=== PATIENT | male | born 1945 | race Caucasian/White ===

== ENCOUNTER 2017-08-15 09:33 | Day surgery (SDC) | payer MEDICARE, BC ==
[2017-08-14 17:44] VITALS: BMI 28.2
[2017-08-15 10:13] LABS: Hematocrit 50.2 % (42.0-52.0)
[2017-08-15 10:28] LABS: Anion Gap 12 mmol/L (10-20); BUN (Urea Nitrogen) 9 mg/dL (8.4-25.7); Calc. Creatinine Clearance 101 mL/min (70-130); Calcium 9.4 mg/dL (7.8-10.44); Carbon Dioxide 25 mmol/L (23-31); Chloride 106 mmol/L (98-107); Estimated GFR-MDRD 82
[2017-08-15] MEDS ORDERED: Lidocaine 1% w/Epinephrine 1:200K 30 ML VIAL ONE (11:00)
[2017-08-15] MEDS ORDERED: Bacitracin Zinc Ointment 30 gm TUBE ONE (11:01)
[2017-08-15] MEDS ORDERED: Fentanyl 100 MCG/2 ML VIAL ONE (11:04)
[2017-08-15] MEDS ORDERED: Lidocaine 1% PF 5 ML VIAL ONE (11:33)
[2017-08-15] MEDS ORDERED: Ondansetron HCl/PF 4 MG/2 ML Vial ONE (11:33)
[2017-08-15] MEDS ORDERED: Propofol 200 MG/20 ML VIAL ONE (11:33)
--- NOTE | 2017-08-15 13:24 | OP ---
PREOPERATIVE DIAGNOSES: Basal cell carcinoma, right nasolabial flap. POSTOPERATIVE DIAGNOSES: Basal cell carcinoma, right nasolabial region. PROCEDURE PERFORMED: Excision of malignant basal cell carcinoma of the right nasolabial region gustavo uring 3.5 cm with a nasolabial flap complex reconstruction. PROCEDURE IN DETAIL: After consent was obtained, the patient was identified, brought to the operati ng room and placed on the table in supine position. Patient was identified, brought to the operatin g room and placed on the table in supine position. Anesthesia was obtained. The patient was positi oned for surgery. A 1% lidocaine with 1:100,000 epinephrine was infiltrated in the area of intended surgery. An elliptical incision was created around the basal cell carcinoma that was identified on the nasal dorsum above the right nasal ala. This was then excised and sent for histologic margins which were clear. We then extended the incision down lateral to the ala and then we excised the wed ge of skin and then advanced and then undermined the skin inferiorly and laterally and advanced the skin into the defect. We then closed the skin in layers with 5-0 Monocryl for the deep layers and 5 -0 Prolene and mattress sutures for the skin. Vertical mattress sutures for the skin. Sterile dres sing was applied as was a Dermabond. The patient was awakened and taken to recovery where she remai vane in stable condition prior to discharge home.
== END 2017-08-15 14:09 | disposition home or self-care (01) ==
LOC: SDC 09:33
PROVIDERS: ATTEND Specialist
PROC: 0HB1XZZ Excision of Face Skin, External Approach (ICD-10-PCS; principal; 2017-08-15)
DX: L98.9 Disorder of the skin and subcutaneous tissue, unspecified (principal); I20.9 Angina pectoris, unspecified; I10 Essential (primary) hypertension; E11.9 Type 2 diabetes mellitus without complications; H91.90 Unspecified hearing loss, unspecified ear; E78.00 Pure hypercholesterolemia, unspecified; Z79.02 Long term (current) use of antithrombotics/antiplatelets; Z79.82 Long term (current) use of aspirin; Z79.4 Long term (current) use of insulin; Z79.899 Other long term (current) drug therapy; Z96.1 Presence of intraocular lens; Z98.41 Cataract extraction status, right eye; Z95.1 Presence of aortocoronary bypass graft; Z95.818 Presence of other cardiac implants and grafts; Z98.890 Other specified postprocedural states; Z85.828 Personal history of other malignant neoplasm of skin; Z83.3 Family history of diabetes mellitus; Z82.3 Family history of stroke
CPT/HCPCS: 36415; 80048; 85014; 85018; 85049; 88305; 88331; 88332; 93005; 93010; J2001; J2405; J2704; J3010

== ENCOUNTER 2018-08-28 10:42 | Day surgery (SDC) | payer MEDICARE, BC ==
[2018-08-27 08:32] VITALS: BMI 28.5
[2018-08-28] MEDS ORDERED: Lidocaine 1% PF 5 ML VIAL ONE (11:41)
[2018-08-28] MEDS ORDERED: Dexamethasone 20 MG/5 ML VIAL ONE (11:41)
[2018-08-28] MEDS ORDERED: Ondansetron PF 4 MG/2 ML Vial ONE (11:41)
[2018-08-28] MEDS ORDERED: PROPOFOL 200 MG/20 ML VIAL ONE (11:41)
[2018-08-28] MEDS ORDERED: ePHEDrine/0.9% NaCl/PF SYRINGE 50 mg/10 ml ONE (11:41)
[2018-08-28 13:11] LABS: Hemoglobin 13.9 g/dL (14.0-18.0)
[2018-08-28 13:25] LABS: Anion Gap 10 mmol/L (10-20); BUN (Urea Nitrogen) 10 mg/dL (8.4-25.7); Calc. Creatinine Clearance 105 mL/min (70-130); Calcium 9.3 mg/dL (7.8-10.44); Carbon Dioxide 24 mmol/L (23-31); Chloride 107 mmol/L (98-107); Estimated GFR-MDRD 87; Glucose 131 mg/dL (83-110); Potassium 4.2 mmol/L (3.5-5.1); Sodium 137 mmol/L (136-145)
[2018-08-28] MEDS ORDERED: Fentanyl 100 MCG/2 ML VIAL ONE (14:39)
[2018-08-28] MEDS ORDERED: Lidocaine 1% w/Epinephrine 1:100K 30 ML VIAL ONE (14:40)
[2018-08-28] MEDS ORDERED: Ophthalmic Irrigation Solution 15 ML ONE (15:02)
--- NOTE | 2018-08-28 19:11 | OP ---
PREOPERATIVE DIAGNOSIS: Left malignant nasal lesion. POSTOPERATIVE DIAGNOSIS: Left malignant basal cell carcinoma. PROCEDURES PERFORMED: Excision of left malignant basal cell carcinoma measuring 2.5 cm with complex rotational flap closure. PROCEDURE IN DETAIL: After consent was obtained, the patient was identified, brought to the operatin g room and placed on the operating room table in supine position. LMA anesthesia was obtained. The patient was positioned for surgery. The area of intended excision was examined and demarcated under microscopic visualization. We then prepped the area and infiltrated with 1% lidocaine with 1:100,000 epinephrine. An elliptical incision was made and sent for histologic evaluation. Margins were seema r. We then created a rhomboid type flap and rotated the flap into the defect and secured that with t he deep tissues with a 6-0 Monocryl and the skin with 6-0 Prolene. Hemostasis was obtained with bipo lar. Sterile dressing was applied. Steri-Strips were placed after Dermabond. The patient was awake vane and taken to recovery room in stable condition prior to discharge home.
--- NOTE | 2018-09-01 06:47 | PQF ---
[facility] POST DISCHARGE CLINICAL DOCUMENTATION IMPROVEMENT CLARIFICATION FORM l Todays Date: 09/01/18 l Patients Name JOHN OLEA l l Admit Date 08/28/18 l Disch Date 08/28/18 Camp Attendant Name Nicolas Niño Email: [email or web address]: [phone] Present Clinical Indicators - Signs / Symptoms Results and Location in Medical Record [ ] Documentation of: [ ] [ ] Documentation of: [ ] [ ] Documentation of: [ ] [ ] Documentation of: [ ] [ ] Risks [ ] [ ] [ ] Treatment [ ] BASAL CELL CARCINOMA OF NOSE QUERY FOR SIZE IN AREA OF ROTATIONAL FLAP USED FOR WOUND CLOSURE (sq cm) [ ] [ ] To be completed by Physician: GUSTAVO CONWAY The documentation in this patients record requires clarification to ensure coding compliance and accuracy. Check the appropriate box and include in your discharge summary. [ ] [ ] [ ] [ ] Please check this box if this does not apply to this patient [ ] Unable to determine [ ] Other diagnosis: Review the following information and exercise your independent professional judgment in responding to the clarification. Based upon the clinical findings, risk factors, and treatment, please clarify if you are treating one of the above probable or suspected diagnoses. Physician Signature: Date Time MTDD
== END 2018-08-28 17:40 | disposition home or self-care (01) ==
LOC: SDC 10:42
PROVIDERS: ATTEND Specialist
PROC: 0HX1XZZ Transfer Face Skin, External Approach (ICD-10-PCS; principal; 2018-08-28)
PROC: 0HB1XZZ Excision of Face Skin, External Approach (ICD-10-PCS; 2018-08-28)
DX: C44.311 Basal cell carcinoma of skin of nose (principal); D23.39 Other benign neoplasm of skin of other parts of face; E11.9 Type 2 diabetes mellitus without complications; I10 Essential (primary) hypertension; E78.00 Pure hypercholesterolemia, unspecified; Z79.02 Long term (current) use of antithrombotics/antiplatelets; Z79.82 Long term (current) use of aspirin; Z79.84 Long term (current) use of oral hypoglycemic drugs; Z79.899 Other long term (current) drug therapy
CPT/HCPCS: 36415; 80048; 85014; 85018; 88305; 93005; 93010; J1100; J2001; J2405; J2704; J3010